=== PATIENT | male | born 1945 | race Hispanic/Latino ===

== ENCOUNTER 2019-10-25 | Emergency (ER) | payer MEDICARE ==
[~2019-10-25] MED LIST: ADLT ASA LOW81 MG PO; BENADRYL 50MG C50 MG PO; CARDIZEM CD240 MG PO; CATAPRES0.1 MG PO; COZAAR100 MG PO; FLUTICASONE50 MCG; GLIMEPIRIDE2 MG PO; GLIMEPIRIDE4 MG PO; GLUCOPHAGE1000 MG PO; MAXZIDE-25MG1 COMBO PO; MEDDOSEPAK PO; METFORMIN500 MG PO; PEPCID20 MG PO; QUINAPRIL HCL40 MG PO; QUINAPRIL40 MG PO; TENORMIN PO; TENORMIN25 M1 PO; TENORMIN50 MG PO; [UNRECOGNIZED DRUG - REMARK]; catapres PO
[2019-10-25] MEDS ORDERED: AMOXICILLIN875 MG PO (12:38)
== END 2019-10-25 13:00 | disposition home or self-care (01) ==
PROC: 3E1B78Z Irrigation of Ear using Irrigating Substance, Via Natural or Artificial Opening (ICD-10-PCS; principal; 2019-10-25)
DX: H61.22 Impacted cerumen, left ear (principal); H66.92 Otitis media, unspecified, left ear; H72.92 Unspecified perforation of tympanic membrane, left ear; J32.9 Chronic sinusitis, unspecified; E11.9 Type 2 diabetes mellitus without complications; I10 Essential (primary) hypertension; Z79.84 Long term (current) use of oral hypoglycemic drugs

== ENCOUNTER 2020-09-21 14:06 | Emergency (ER) | payer MEDICARE ==
[~2020-09-21 14:06] MED LIST changes: +AMOXICILLIN875 MG PO
== END 2020-09-21 15:04 | disposition left against medical advice (07) ==
LOC: ED 14:06 → LWOBS 15:03
DX: Z53.21 Procedure and treatment not carried out due to patient leaving prior to being seen by health care provider (principal)

== ENCOUNTER 2020-09-21 18:08 | Emergency (ER) | payer OTHER, MEDICARE ==
[~2020-09-21] VITALS: Ht 170.2 cm; Wt 95.4 kg
[2020-09-21 20:44] VITALS: BP 148/76
== END 2020-09-21 20:44 | disposition left against medical advice (07) | DRG 605 ==
LOC: ED 18:08
DX: S30.0XXA Contusion of lower back and pelvis, initial encounter (principal); E11.9 Type 2 diabetes mellitus without complications; I10 Essential (primary) hypertension; W17.89XA Other fall from one level to another, initial encounter; Y99.0 Civilian activity done for income or pay; Z79.84 Long term (current) use of oral hypoglycemic drugs; Z91.19 Patient's noncompliance with other medical treatment and regimen

== ENCOUNTER 2021-08-14 10:38 | Emergency (ER) | payer MEDICARE ==
[~2021-08-14] VITALS: Ht 170.2 cm; Wt 100.0 kg
[2021-08-14] MEDS ORDERED: AMOX/K CLAV875 M1 PO (11:06)
[2021-08-14 11:10] VITALS: BP 185/90
== END 2021-08-14 11:15 | disposition home or self-care (01) ==
LOC: ED 10:38
PROC: 3E1B38Z Irrigation of Ear using Irrigating Substance, Percutaneous Approach (ICD-10-PCS; principal; 2021-08-14)
DX: H72.92 Unspecified perforation of tympanic membrane, left ear (principal); H61.21 Impacted cerumen, right ear; E11.9 Type 2 diabetes mellitus without complications; I10 Essential (primary) hypertension

== ENCOUNTER 2022-08-24 13:39 | Emergency (ER) | payer MEDICARE ==
[~2022-08-24] VITALS: Ht 170.2 cm; Wt 100.0 kg
[~2022-08-24 13:39] MED LIST changes: +AMOX/K CLAV875 M1 PO
[2022-08-24 13:56] VITALS: BP 171/91
[2022-08-24] MEDS ORDERED: HYDROCORTISONE2.5 % EX (14:41)
[2022-08-24] MEDS ORDERED: MEDDOSEPAK PO (14:41)
[2022-08-24 15:00] VITALS: BP 171/91
== END 2022-08-24 15:00 | disposition home or self-care (01) ==
LOC: ED 13:39
DX: L25.9 Unspecified contact dermatitis, unspecified cause (principal); I10 Essential (primary) hypertension; E11.9 Type 2 diabetes mellitus without complications